=== PATIENT | male | born 1975 | race Caucasian/White ===

== ENCOUNTER 2023-11-18 16:14 | Emergency (ER) | payer OTHER, SELFPAY ==
--- NOTE | ~2023-11-18 | XR_ITS ---
Lumbosacral Spine: AP and lateral views Clinical History: Pain Findings: Questionable L5 pars interarticularis defects, with 18 mm anterolisthesis of L5 over S1. No acute fracture identified. There is moderate to advanced facet arthropathy at L4-L5 and L5-S1. There is mild to moderate facet arthropathy at the remainder of the lumbar spine. The sacroiliac joints ar e normally outlined. Impression: No definite acute abnormality. Possible L5 pars interarticularis defects, with 18 mm anterolisthesis of L5 over S1. Moderate to advanced degenerative spondylosis, as detailed above, especially the lower lumbar spine. Reviewed, dictated and finalized at location . [employer] Impression: No definite acute abnormality. Possible L5 pars interarticularis defects, with 18 mm anterolisthesis of L5 ove r S1. Moderate to advanced degenerative spondylosis, as detailed above, especially th e lower lumbar spine.
--- NOTE | ~2023-11-18 | XR_ITS ---
Thoracic spine: Clinical Indication: Back pain AP and lateral views were performed. No fracture is seen. There is normal alignment of the vertebrae. The intervertebral disc spaces appe ar normal. Paravertebral soft tissues appear normal. Impression: No significant abnormalities noted. Reviewed, dictated and finalized at [facility]. [employer] MIDWIFE/[employer]ENTICESHIP DIRECTOR Impression: No significant abnormalities noted.
--- NOTE | ~2023-11-18 | XR_ITS ---
Cervical Spine: AP, lateral, open-mouth views Clinical History: Pain Findings: The normal lordotic curve is maintained. The vertebral bodies and posterior elements appea r intact. The intervertebral disc spaces are well maintained. Pre-vertebral soft tissues are unremar kable. Impression: No significant abnormality is seen. Reviewed, dictated and finalized at [facility]. [employer] MANAGER Impression: No significant abnormality is seen.
--- NOTE | 2023-11-18 16:22 | ED.GENADULT ---
HPI - General Adult General Chief complaint: Back Pain/Injury Stated complaint: Back and Neck Pain Time Seen by Provider: 11/18/23 16:22 Source: patient Mode of arrival: ambulatory Limitations: no limitations History of Present Illness HPI narrative: 48-year-old male patient presents to the [facility] with complaints of neck and back pain. Patient states on November 13 he was involved in an accident at work. 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 Patient states it parminder him . Denies hitting his head or loss of consciousness. Patient states that at 1st he had no pain and states that the pain actually did not kick in until about a half an hour later. Patient states he has had pain all week and had has been unable to drive and unable to come to until today. Patient states he has been taking Tylenol and ibuprofen for pain. Denies any ice or heat. Denies any numbness or tingling down the legs. Denies any loss of bowel or bladder control. Related Data Allergies Allergy/AdvReac Type Severity Reaction Status Date / Time No Known Allergies Allergy Verified 11/18/23 16:28 Review of Systems Review of Systems: CONSTITUTIONAL: Denies fever, chills, or sweats. EYES: Denies visual changes, redness, or discharge. ENT: Denies rhinorrhea, congestion, sore throat, or otalgia. CARDIOVASCULAR: Denies chest pain, palpitations, or edema. RESPIRATORY: Denies cough or dyspnea. GASTROINTESTINAL: Denies abdominal pain, nausea, vomiting, or diarrhea. GENITOURINARY: Denies dysuria or hematuria. SKIN: Denies rash or itching. MUSCULOSKELETAL: Positive neck andback pain, denies joint pain, or myalgia. NEUROLOGIC: Denies headache, numbness, or weakness. PSYCHIATRIC: Denies anxiety or depression. PMFSH Surgical History Surgical History History of orthopedic surgery bilateral elbows Comments At the time of my signature I agree with nursing past medical history, surgical, social, and family history. There is no relevant family history pertinent to the presenting complaint. Exam Narrative: GENERAL: Well-appearing, well-nourished, and in no acute distress. HEAD: Normocephalic, atraumatic. EYES: PERRLA and EOMI. ENT: Nares clear, no rhinorrhea or epistaxis. Mucous membranes moist. NECK: Supple, no lymphadenopathy. No surface trauma, soft tissue or muscle tenderness and spinal tenderness noted on palpitation of the entire C-spine. Trachea midline. No subq emphysema or crepitus. No step-offs or deformity to firm Palpation at posterior midline. FROM with limitation And pain, decreasednormal flexion, extension,Lateral bending, rotation, no axial load. CHEST: Clear to auscultation. No respiratory distress. HEART: Regular rate and rhythm. No murmur heard. Normal peripheral pulses. ABDOMEN: Soft, nontender, nondistended, normal active bowel sounds. EXTREMITIES: Normal range of motion. No edema. BACK: Patient is able to ambulated without assistance. Pt is seated/lying on the stretcher in distress. No surface trauma noted. muscle tenderness to Palpation within palpating the entire back. patient is not able to specify exactly where the worsening pain in his appetite states he does have pain to the lateral L-spine around L4-5. No spasm or mass. No step-offs or deformity noted to the cervical, thoracic or lumbar spine to firm Palpation at the midline. No CVA tenderness to percussion. No saddle anesthesia. ROM: able to stand erect. Decreased flexion, extension, Lateral bending and rotation with limitation and complaint of pain. positive bilateral straight leg raise SKIN: Warm, dry, no rash. NEURO: No focal deficits. Alert and oriented x3. Course Course Level of Care: Express Care Visit Reevaluation(s) Reevaluation #1: re-evaluated patient and discussed with him that he will need to follow-up with neurosurgeon for fu
[2023-11-18 16:34] VITALS: BP 167/92; PULSE 70; RESP 18; TEMP 36.7; O2SAT 98
[2023-11-18] MEDS: IBUPROFEN 400 MG TABLET 800 MG PO (17:07)
== END 2023-11-18 18:00 | disposition home or self-care (01) ==
PROVIDERS: Emergency Provider Nurse Practitioner Family
DX: M47.816 Spondylosis without myelopathy or radiculopathy, lumbar region (principal); S16.1XXA Strain of muscle, fascia and tendon at neck level, initial encounter; X58.XXXA Exposure to other specified factors, initial encounter; Y99.0 Civilian activity done for income or pay
CPT/HCPCS: 72050; 72072; 72100; 99214; A9270; G0463